=== PATIENT | male | born 1980 | race Caucasian/White ===

== ENCOUNTER 2016-10-31 22:34 | Emergency (ER) | payer OTHER ==
--- NOTE | 2016-11-03 01:37 | ER ---
ADMIT: 10/31/2016 RM/LOC: ER [facility] MR#: [id number] [address] [id number] KATJA HADLEY [address] [place] [address] Emergency Room Report SEX: M AGE: 36 : 1980 DATE: 10/31/2016 CHIEF COMPLAINT: Puncture wound to his finger. 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 They were doing an inspection on an inmate's room when he reached onto the edge of a table and he got punctured with something. They looked and saw what it was and it was half of a set of tweezers that had been pulled apart with a sharp end. They found some other items in the room that made them believe that this was possibly used for tattooing. Because of that, the concern is exposure to a possible infectious etiology on the tip of the sharp item. The patient has no other symptoms. MEDICATIONS: He takes blood pressure medication. ALLERGIES: NONE. PAST MEDICAL HISTORY: Hypertension. He had a colonoscopy a year ago which was negative. He does believe he is hepatitis B-immune, but he is not sure. SOCIAL HISTORY: He uses vaping. He denies any drug use. He does use some alcohol daily. PHYSICAL EXAMINATION: GENERAL: The patient is alert and oriented, in no distress. LUNGS: No respiratory distress. SKIN: Warm and dry. He does have a very small puncture wound to the ring finger of his right hand. MEDICAL DECISION MAKING: Based on his possible exposure to hepatitis B, C, and HIV, we will go ahead and do our routine blood test for that. They tested for hepatitis C, hepatitis B, antibody quant, hepatitis B antigen, and HIV. Blood is drawn and patient is discharged to follow up through the senior care on the results of this test. DIAGNOSIS: Possible needle stick. Valerio Law MD/ johnathan JOB #: [id number] CC: Valerio Law MD, Attending Physician Camron Yu MD, Family Physician
== END 2016-11-01 00:55 | disposition home or self-care (01) ==
LOC: ER 22:34
DX: S61.234A Puncture wound without foreign body of right ring finger without damage to nail, initial encounter (principal); W46.0XXA Contact with hypodermic needle, initial encounter; Y92.69 Other specified industrial and construction area as the place of occurrence of the external cause; Y99.0 Civilian activity done for income or pay